=== PATIENT | male | born 1965 | race African-American/Black ===

== ENCOUNTER → 2021-05-04 | Day surgery (SDC) | payer BC ==
[2021-05-01 13:52] VITALS: BMI 27.8
[2021-05-04 08:53] VITALS: TEMP 98
[2021-05-04 11:03] VITALS: BP 130/89; PULSE 74
== END | disposition home or self-care (01) ==
LOC: JASU-ENDO 04:37
PROVIDERS: ATTEND Internal Medicine Gastroenterology
PROC: 0DJD8ZZ Inspection of Lower Intestinal Tract, Via Natural or Artificial Opening Endoscopic (ICD-10-PCS; principal; 2021-05-04 09:30)
DX: Z12.11 Encounter for screening for malignant neoplasm of colon (principal); K64.8 Other hemorrhoids